=== PATIENT | male | born 1970 | race American Indian/Alaskan Native ===

== ENCOUNTER 2021-03-30 06:35 | Day surgery (SDC) | payer BC ==
[2021-03-21 11:09] LABS: BUN/Creatinine Ratio 16; Blood Urea Nitrogen 16 mg/dL (9-20); Calcium 9.3 mg/dL (8.4-10.2); Hemolysis Index 6
[2021-03-21 11:16] LABS: Hematocrit 45.4 % (35.5-45.6); Hemoglobin 15.2 gm/dl (11.8-15.2); Mean Corpuscular HGB Conc 34 % (32-34); Mean Corpuscular Volume 90 fl (84-94); Platelet Count 240 K/mm3 (140-440); Red Blood Count 5.06 M/mm3 (3.65-5.03); Red Cell Distribution Width 13.7 % (13.2-15.2)
--- NOTE | 2021-03-21 13:53 | Anesthesia Consultation ---
Anesthesia Consult and Med Hx Date of service: 03/30/21 - Airway Anesthetic Teeth Evaluation: Good ROM Head & Neck: Adequate Mental/Hyoid Distance: Adequate Mallampati Class: Class IV Intubation Access Assessment: Possibly Difficult - Pre-Operative Health Status ASA Pre-Surgery Classification: ASA2 Proposed Anesthetic Plan: General - Pulmonary Hx Smoking: No Hx Asthma: Yes (TX= SINGULAR QD ONLY; worse in spring) Hx Sleep Apnea: No (KELLI PRE SCREEN LOW RISK) - Cardiovascular System Hx Hypertension: No - Central Nervous System Hx Neuromuscular Disorder: Yes (Radiculopathy X 4) Hx Back Pain: Yes (NECK AND LOW BACK PAIN) Hx Psychiatric Problems: No - Gastrointestinal Hx Gastroesophageal Reflux Disease: No - Endocrine Hx Non-Insulin Dependent Diabetes: Yes (PRE) - Hematic Hx Anemia: No Hx Sickle Cell Disease: No - Other Systems Hx Cancer: No Hx Obesity: Yes
[~2021-03-30 06:35] MED LIST: ACETAMINOPHEN 500 MG TAB PO ONE; GABAPENTIN 300 MG CAP PO NR; LACTATED RINGERS 1,000 ML IV SCH; MAGNESIUM OXIDE 400 MG TAB PO ONE; MIDAZOLAM 2 MG/2 ML INJ IV NR; SCOPOLAMINE TRANSDERMAL PATCH 72 HR TD NR
[2021-03-30] MEDS ORDERED: LIDOCAINE 1%/EPINEPHRINE 1:100,000 VIAL (20 ML) INFILTRATI ONE ×2 (07:14→10:35)
[2021-03-30] MEDS ORDERED: VANCOMYCIN 1000 MG INJ ONE ×2 (07:14→09:44)
[2021-03-30] MEDS ORDERED: SODIUM CHLORIDE P/F VIAL 10 ML 10 ML ONE ×2 (07:15→09:44)
[2021-03-30] MEDS ORDERED: THROMBIN (RECOMBINANT) 5,000 UNIT VIAL TP ONE ×2 (07:15→10:07)
--- NOTE | 2021-03-30 07:22 | Anesthesia Day of Surgery ---
Anesthesia Day of Surgery - Day of Surgery Patient Examined: Yes Patient H&P Reviewed: Yes Patient is NPO: Yes
[2021-03-30] MEDS ORDERED: MAGNESIUM SULFATE 4 GM/100 ML BAG IV ONE (07:24)
[2021-03-30] MEDS ORDERED: fentaNYL 100 MCG/2 ML INJ ONE (07:24)
[2021-03-30] MEDS ORDERED: LIDOCAINE PF 100 MG/5 ML (CARDIAC SYRINGE) IV ONE (07:24)
[2021-03-30] MEDS ORDERED: propofoL 200 MG/20 ML VIAL IV ONE ×2 (07:24)
[2021-03-30] MEDS ORDERED: KETAMINE/STERILE WATER 50 MG/ML SYRINGE ONE ×2 (07:24→07:32)
[2021-03-30] MEDS ORDERED: SUCCINYLCHOLINE CHLORIDE 200 MG/10 ML INJ MDV ONE (07:32)
[2021-03-30] MEDS ORDERED: ONDANSETRON 4 MG/2 ML INJ IV PRN (08:00)
[2021-03-30] MEDS ORDERED: HYDROmorphone 1 MG/1 ML INJ IV PRN (08:00)
[2021-03-30] MEDS ORDERED: LIDOCAINE MPF (2%) 20 MG/1 ML VIAL 5 ML ONE (08:08)
[2021-03-30] MEDS ORDERED: ROCURONIUM 50 MG/5 ML INJ IV ONE (08:36)
[2021-03-30] MEDS ORDERED: SODIUM CHLORIDE 0.9% 100 ML ONE (08:39)
[2021-03-30] MEDS ORDERED: PHENYLEPHRINE 10 MG/1 ML INJ SDV ONE (08:39)
[2021-03-30] MEDS ORDERED: EPINEPHrine 1 MG/10 ML SYRINGE ONE (08:48)
[2021-03-30] MEDS ORDERED: ePHEDrine SULFATE 50 MG/1 ML INJ ONE (08:49)
[2021-03-30] MEDS ORDERED: NEOSTIGMINE 10MG/10 ML INJ MDV ONE (09:52)
[2021-03-30] MEDS ORDERED: GLYCOPYRROLATE 0.4 MG/2 ML INJ ONE (09:52)
[2021-03-30] MEDS ORDERED: VANCOMYCIN 1,000 MG/20 ML IV ONE (10:04)
[2021-03-30] MEDS ORDERED: SODIUM CHLORIDE 0.9% P/F 10 ML VIAL IV ONE (10:05)
[2021-03-30] MEDS ORDERED: SODIUM CHLORIDE 0.9% IRR 1,500 ML BOTTLE IR ONE (10:06)
--- NOTE | 2021-03-30 10:26 | XRay Report ---
INTRAOPERATIVE FLUOROSCOPY: CERVICAL SPINE INDICATION / CLINICAL INFORMATION: RADICULOPATHY. TECHNIQUE: Intraoperative spot images were obtained during the procedure. FINDINGS: Images show ACDF at C5-6. See operative/procedure note by performing physician for full details. Fluoroscopy Time: 0.2 minutes. Fluoroscopy Images: 2. Signer Name: Jesse Gaming MD Signed: 03/30/2021 10:22 AM Workstation Name: [id number]
--- NOTE | 2021-03-30 14:30 | Post Anesthesia Evaluation ---
- Post Anesthesia Evaluation Patient Participated: Yes Airway Patent: Yes Stable Respiratory Function: Yes Nausea/Vomiting: No Temp > 96.8F: Yes Pain Manageable: Yes Adequeate Hydration: Yes Anesthesia Complications: No Other Comments: Neuro exam unchanged from preop baseline. Denies sugical site pain. OK for d/c to home.
[2021-03-30] MEDS ORDERED: HYDROcodone/ACETAMINOPHEN 5-325 MG TAB PO PRN (14:47)
[2021-03-30] MEDS ORDERED: HYDROcodone/ACETAMINOPHEN 5-325 MG TAB ONE (14:49)
[2021-03-30 17:02] VITALS: BP 148/70
--- NOTE | 2021-04-04 11:03 | Operative Report ---
DATE OF SURGERY: 03/30/2021 PREOPERATIVE DIAGNOSIS: C5-C6 herniated disk with cervical myelopathy refractory to conservative management. POSTOPERATIVE DIAGNOSIS: C5-C6 herniated disk with cervical myelopathy refractory to conservative management. PROCEDURES: Anterior cervical spine approach for: 1. C5-C6 diskectomy and spinal canal decompression with removal of multiple large fragments off of the anterior spinal cord. 2. Placement of interbody cage for fusion purposes at C5-C6. 3. Use of morselized bone graft inside the cage at C5-C6. 4. Anterior instrumentation and stabilization using the Globus plate and screws at C5-C6. STAFF SURGEON: Raymundo Paz MD REGIONAL GUIDE SURGEON: KEE Corey. ANESTHESIA: General. ADVERSE EVENTS: None noted. Time-out observed. PREOPERATIVE NOTE: The patient is a 50-year-old male with progressive cervical myelopathy symptoms. He had intrinsic cord changes at C5-C6. Due to his exam and his abnormal findings on MRI, we recommended surgery. He understood the risks, benefits, options and outcomes regarding the surgery in detail and agreed to proceed. DESCRIPTION OF PROCEDURE: The patient was taken to the operative theater, where he was placed on the operating table. He was intubated by Anesthesia using a GlideScope. He was given all appropriate IV medications and antibiotics by Anesthesia. He was positioned in the supine position, taking great care to avoid undue pressure at all pressure points. The cervical area was then shaved, prepped and draped in the usual fashion. Incision was localized using C-arm fluoroscopy at C5-C6. A timeout was observed to confirm the patient, the procedure and the surgical plan. The incision was infiltrated with local anesthetic. A #10 blade was used to make the initial incision down through the soft tissue. The platysma muscle was then opened in a superior to inferior like fashion and the underlying prevertebral soft tissue was dissected appropriately. The C5-C6 level was then confirmed and a needle localization x-ray was obtained. Distraction pins were then placed into the C5 and C6. Retractor blades were then placed along the longus colli muscles. The diskectomy was then performed using a 15 blade. The microscope was brought into the field and under microsurgical guidance, the remainder of the diskectomy was completed using curettes, upgoing rongeurs and micro nerve hooks. I was able to get all the way back to the posterior longitudinal ligament and dissected with a micro nerve hook. I then removed multiple fragments and the dura was well decompressed. I also decompressed bilaterally out the exiting areas. The endplates were prepared in the usual fashion. An appropriate size interbody cage was then fitted and filled with morselized bone graft and inserted inside the C5-C6 interspace for fusion purposes. At this point in time, the anterior stabilization was performed after removal of the distraction pins. The Globus hardware was then placed and secured in the usual fashion using 16 mm screws. At this point, the retractors were removed, meticulous hemostasis was achieved, and copious irrigation was placed. A drain was then placed and tunneled in usual fashion. A multilayer closure was then performed using 3-0 Vicryl sutures. The skin was closed using Dermabond skin adhesive. A drain was secured in usual fashion with a 2-0 nylon. There were no changes noted by the neuro monitoring team throughout the case. The patient was then eventually extubated and taken to recovery room in stable condition and eventually discharged from the recovery room back home. TID: [id number] RECEIPT: [id number] /[email or web address]
== END 2021-03-30 15:50 | disposition home or self-care (01) ==
LOC: OR 06:35
PROVIDERS: ATTEND Neurological Surgery
DX: M50.022 Cervical disc disorder at C5-C6 level with myelopathy (principal); Q76.1 Klippel-Feil syndrome; M47.812 Spondylosis without myelopathy or radiculopathy, cervical region; Z20.822 Contact with and (suspected) exposure to COVID-19; J45.909 Unspecified asthma, uncomplicated; E66.9 Obesity, unspecified; M19.90 Unspecified osteoarthritis, unspecified site; E11.9 Type 2 diabetes mellitus without complications; Z88.0 Allergy status to penicillin; Z91.013 Allergy to seafood; Z91.010 Allergy to peanuts; Z68.33 Body mass index [BMI] 33.0-33.9, adult
CPT/HCPCS: 20930; 22551; 22845; 22853; 36415; 72040; 80048; 82962; 85027; 86850; 86900; 86901; C1713; J0171; J0330; J1815; J2001; J2250; J2370; J2704; J2710; J3010; J3370; J3475; J3490; J7120; J7502; U0003; J7121